=== PATIENT | male | born 2000 | race African-American/Black ===

== ENCOUNTER 2020-02-20 16:28 | Emergency (ER) | payer OTHER ==
[~2020-02-20] VITALS: Ht 177.8 cm; Wt 70.9 kg
[2020-02-20 17:04] VITALS: BP 151/63
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
--- NOTE | 2020-02-20 18:42 | PHYS DOC ---
Past Medical History Past Medical History: No Pertinent History Past Surgical History: No Surgical History Smoking Status: Never Smoker Alcohol Use: None General Adult EDM: Chief Complaint: ANKLE PROBLEM HPI: HPI: Patient is a 19 year old [f__sex] who presents with [] Review of Systems: Review of Systems: Constitutional: Denies fever or chills. [] Eyes: Denies change in visual acuity. [] HENT: Denies nasal congestion or sore throat. [] Respiratory: Denies cough or shortness of breath. [] Cardiovascular: Denies chest pain or edema. [] GI: Denies abdominal pain, nausea, vomiting, bloody stools or diarrhea. [] : Denies dysuria. [] Musculoskeletal: Denies back pain or joint pain. [] Integument: Denies rash. [] Neurologic: Denies headache, focal weakness or sensory changes. [] Endocrine: Denies polyuria or polydipsia. [] Lymphatic: Denies swollen glands. [] Psychiatric: Denies depression or anxiety. [] Heart Score: Risk Factors: Risk Factors: DM, Current or recent (<one month) smoker, HTN, HLP, family history of CAD, obesity. Risk Scores: Score 0 - 3: 2.5% MACE over next 6 weeks - Discharge Home Score 4 - 6: 20.3% MACE over next 6 weeks - Admit for Clinical Observation Score 7 - 10: 72.7% MACE over next 6 weeks - Early Invasive Strategies Allergies: Allergies: Allergies Coded Allergies Type Severity Reaction Last Updated Verified No Known Drug Allergies 02/20/20 No Physical Exam: PE: Constitutional: Well developed, well nourished, no acute distress, non-toxic a ppearance. [] HENT: Normocephalic, atraumatic, bilateral external ears normal, oropharynx moist, no oral exudates, nose normal. [] Eyes: PERRLA, EOMI, conjunctiva normal, no discharge. [] Neck: Normal range of motion, no tenderness, supple, no stridor. [] Cardiovascular:Heart rate regular rhythm, no murmur [] Lungs & Thorax: Bilateral breath sounds clear to auscultation [] Abdomen: Bowel sounds normal, soft, no tenderness, no masses, no pulsatile masses. [] Skin: Warm, dry, no erythema, no rash. [] Back: No tenderness, no CVA tenderness. [] Extremities: No tenderness, no cyanosis, no clubbing, ROM intact, no edema. [] Neurologic: Alert and oriented X 3, normal motor function, normal sensory function, no focal deficits noted. [] Psychologic: Affect normal, judgement normal, mood normal. [] Current Patient Data: Vital Signs: Vital Signs Date Time Temp Pulse Resp B/P (MAP) Pulse Ox O2 Delivery O2 Flow Rate FiO2 02/20/20 17:04 98.7 88 16 151/63 (92) 98 Room Air 98.7 EKG: EKG: [] Radiology/Procedures: Radiology/Procedures: [] Course & Med Decision Making: Course & Med Decision Making Pertinent Labs and Imaging studies reviewed. (See chart for details) [] Dragon Disclaimer: Dragon Disclaimer: This electronic medical record was generated, in whole or in part, using a voice recognition dictation system. Departure Departure Impression: Primary Impression: Strain of right knee Qualified Codes: S86.911A - Strain of unspecified muscle(s) and tendon(s) at lower leg level, right leg, initial encounter Additional Impressions: Right ankle sprain Qualified Codes: S93.401A - Sprain of unspecified ligament of right ankle, initial encounter Abrasions of multiple sites Disposition: HOME, SELF-CARE Condition: STABLE Referrals: YOLANDA RAMIREZ MD (PCP) CHUCK SANFORD II, MD Patient Instructions: Abrasions, Ankle Sprain, [id number], Crutch Use, [id number], Knee Pain, [id number], Knee Wraps (Elastic Bandage) and RICE Additional Instructions: Use over the counter Ibuprofen and/or Tylenol as needed for pain. Do not soak your wound. You may shower. Clean wound daily with soap and water. Change dressing 2 times daily. Use over the counter antibiotic ointment with each dressing change. Justicifation of Admission Dx: Justifications for Admission: Justification of Admission Dx: N/A TALHA LOPEZ DO Feb 20, 2020 18:42
== END 2020-02-20 18:53 | disposition home or self-care (01) ==
LOC: ER 16:28
DX: S93.401A Sprain of unspecified ligament of right ankle, initial encounter (principal); S86.911A Strain of unspecified muscle(s) and tendon(s) at lower leg level, right leg, initial encounter; V86.56XA Driver of dirt bike or motor/cross bike injured in nontraffic accident, initial encounter; Y92.488 Other paved roadways as the place of occurrence of the external cause; Y93.89 Activity, other specified; Y99.8 Other external cause status
CPT/HCPCS: 73562; 73610; 99284

== ENCOUNTER 2021-03-18 17:21 | Emergency (ER) | payer OTHER | END 2021-03-18 18:06 | disposition left against medical advice (07) | LOC: ER 17:21 | DX: M25.562 Pain in left knee (principal); Z53.21 Procedure and treatment not carried out due to patient leaving prior to being seen by health care provider ==

== ENCOUNTER 2021-08-10 03:18 | Emergency (ER) | payer OTHER ==
[~2021-08-10] VITALS: Ht 177.8 cm; Wt 74.5 kg
[2021-08-10 03:37] VITALS: BP 127/83
[2021-08-10] MEDS ORDERED: LIDOCAINE 1%/EPI 1:100,000 20 ML VIAL. INJ ONE (04:00)
[2021-08-10] MEDS ORDERED: NEOMY/BACITR/POLYMYXIN OINT PACKET. TP ONE (04:00)
[2021-08-10] MEDS ORDERED: ACETAMINOPHEN 500 MG TABLET PO ONE (04:00)
[2021-08-10] MEDS ORDERED: IBUPROFEN 400 MG TABLET. PO ONE (04:00)
--- NOTE | 2021-08-10 04:20 | RAD ---
Right hand x-rays 3 views HISTORY: Right hand injury. FINDINGS: There is bony sclerosis at the proximal pole of the scaphoid may represent chronic changes of osteonecrosis. No fracture or dislocation evident. There is overlapping of the fingers on the late ral view this limits the ability to detect a nondisplaced fracture. Soft tissues are normal. IMPRESSION: No acute osseous injury. See above. Electronically signed by: Toño Menchaca MD (08/10/2021 4:18 AM) [facility]
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
== END 2021-08-10 04:37 | disposition home or self-care (01) ==
LOC: ER 03:18
DX: S61.411A Laceration without foreign body of right hand, initial encounter (principal); W22.8XXA Striking against or struck by other objects, initial encounter; Y93.89 Activity, other specified; Y92.89 Other specified places as the place of occurrence of the external cause; Y99.8 Other external cause status
CPT/HCPCS: 12002; 73130; 99284; J3490

== ENCOUNTER 2021-08-28 11:04 | Day surgery (SDC) | payer OTHER ==
[~2021-08-28] VITALS: Ht 177.8 cm; Wt 73.0 kg
--- NOTE | 2021-08-28 11:43 | EKG ---
[facility] [address] [place] [address] Test Date: 2021-08-28 Test Time: 11:39:31 Pat Name: ADAMS ESQUIVEL Department: Room: Gender: M [employer]: : 2000 Requested By: RICK SALCEDO Order Number: [id number] Reading MD: Domingo Glover MD Measurements Intervals [place] Rate: 54 P: 42 LA: 138 QRS: 54 QRSD: 90 T: 38 QT: 376 QTc: 358 Interpretive Statements SINUS RHYTHM RBBB CANNOT RULE OUT TYPE 2 BRUGADA PATTERN Electronically Signed On 08-29-2021 20:36:28 [employer]IST[employer] by Domingo Glover MD
[2021-08-28 11:45] LABS: BASO # 0.1 x10^3/uL (0.0-0.2); BASO % 1 % (0-3); EOS # 0.3 x10^3/uL (0.0-0.7); EOS % 4 % (0-3); HEMATOCRIT 42.3 % (39.0-53.0); HEMOGLOBIN 14.2 g/dL (13.0-17.5); LYMPH # 2.4 x10^3/uL (1.0-4.8); LYMPH % 30 % (24-48); MEAN CORPUSCULAR HEMOGLOBIN 30 pg (25-35); MEAN CORPUSCULAR HGB CONC 34 g/dL (31-37); MEAN CORPUSCULAR VOLUME 91 fL (79-100); MONO # 1.1 x10^3/uL (0.0-1.1); MONO % 14 % (0-9); NEUT # 4.2 x10^3/uL (1.8-7.7); NEUT % 52 % (31-73); PLATELET COUNT 340 x10^3/uL (140-400); RED BLOOD COUNT 4.67 x10^6/uL (4.30-5.70); RED CELL DISTRIBUTION WIDTH 13.4 % (11.5-14.5); WHITE BLOOD COUNT 8.1 x10^3/uL (4.0-11.0)
[2021-08-28] MEDS ORDERED: IV RINGERS,LACTATED 1000ML 1,000 ML IV ONE (11:45)
[2021-08-28] MEDS ORDERED: BACITRACIN TOPICAL OINT PACKET. TP ONE (13:54)
[2021-08-28] MEDS ORDERED: LIDOCAINE 1% Multi-Dose 20 ML VIAL. ONE (13:54)
[2021-08-28] MEDS ORDERED: SEVOFLURANE 16 TO 30 MINUTES. IH ONE (13:56)
[2021-08-28] MEDS ORDERED: LIDOCAINE 2% PF 5 ML VIAL. ONE (13:56)
[2021-08-28] MEDS ORDERED: MIDAZOLAM HCL/PF 2 MG/2 ML VIAL. ONE (13:56)
[2021-08-28] MEDS ORDERED: PROPOFOL 10 MG/ML (20ML) VIAL. IV ONE (13:56)
[2021-08-28] MEDS ORDERED: fentaNYL PF VIAL 100 MCG/2 ML VIAL ONE (13:56)
[2021-08-28] MEDS ORDERED: DEXAMETHASONE SOD PHOS 4 MG/ML VIAL ONE (13:56)
[2021-08-28] MEDS ORDERED: ONDANSETRON PF 4 MG/2 ML VIAL. ONE (13:56)
[2021-08-28] MEDS ORDERED: IBUP-1060 PO (14:23)
[2021-08-28] MEDS ORDERED: ACET500T68 PO (14:23)
--- NOTE | 2021-08-28 14:24 | PDOC4 ---
OPERATIVE NOTE Date: Date: Aug 28, 2021 Pre-Op Diagnosis: Laceration of extensor digitorum communis tendon of right middle finger Post-Op Diagnosis: Same Procedure Performed: Repair of the EDC tendon, right middle finger, CPT 69869 Surgeon: Sera Salcedo MD Anesthesia Type: General Blood Loss: 5 mL Specimans Obtained: None Findings: See operative note Complications: None Operative Note: Informed consent was taken in the perioperative holding area. The risk of bleeding, infection, tendon rupture, need for tendon graft from the palmaris longus tendon, the need for prolonged splint therapy, stiffness, pain were discussed with the patient. He understood the risk and desire to proceed. The patient was brought to the operating room and laid on the OR table in the supine position. A timeout was completed verifying the correct patient and correct procedure. SCDs were in place and functioning prior to general anesthesia. General anesthesia was administered. IV antibiotics were provided. The right arm was stretched on the hand table, prepped with ChloraPrep, and draped in the usual sterile fashion. I began by incising through the previous laceration to attempt to identify the tendon ends. They could not be fully visualized therefore a longitudinal incision was made proximally and distally approximately 3 cm proximally and 2 cm distally. Tenotomy scissors were used to dissect through the subcutaneous tissue and the surrounding tenosynovium. The EDC tendon ends were identified and lied approximately 2 cm apart. These were gently dissected away from the surrounding tissues with tenotomy scissors leaving a 1 cm gap between the tendon ends. Care was taken to preserve the sagittal bands distally near the MCP joint. A 3-0 nylon suture was used to perform a modified Mc repair of the tendon using a single suture. Good approximation was obtained. The wound was irrigated with saline. Hemostasis was achieved with bipolar cautery. Inspection revealed that the neurovascular trip was intact. The skin was then closed with 4-0 nylon suture. Bacitracin, Xeroform, and gauze were placed. The patient was then placed in a plaster splint in the intrinsic plus position. The patient tolerated procedure well was taken to the PACU in stable condition. SERA SALCEDO MD Aug 28, 2021 14:24
[2021-08-28] MEDS ORDERED: BUPIVACAINE-EPI 0.25% 30 ML VIAL KIT. ONE (14:32)
[2021-08-28] MEDS ORDERED: LIDOCAINE 1%/EPI 1:100,000 20 ML VIAL. ONE (14:32)
[2021-08-28] MEDS ORDERED: ePHEDrine PF IN SALINE 50 MG/10 ML SYRINGE. IV ONE (14:39)
[2021-08-28 16:45] VITALS: BP 143/83
== END 2021-08-28 16:55 | disposition home or self-care (01) ==
LOC: SURG 11:04
PROVIDERS: ATTEND Plastic Surgery
DX: S61.212A Laceration without foreign body of right middle finger without damage to nail, initial encounter (principal); Z79.899 Other long term (current) drug therapy; Z98.890 Other specified postprocedural states; X58.XXXA Exposure to other specified factors, initial encounter; Y93.89 Activity, other specified; Y92.89 Other specified places as the place of occurrence of the external cause; Y99.8 Other external cause status
CPT/HCPCS: 26418; 85025; 93005; A4209; A4565; A4930; A6223; A6402; A6449; J0690; J1100; J2250; J2405; J2704; J3010; J3490; A6452